=== PATIENT | male | born 1955 | race Caucasian/White ===

== ENCOUNTER 2019-02-28 16:28 | Emergency (ER) | payer BC ==
[~2019-02-28] VITALS: Ht 177.8 cm; Wt 68.0 kg
--- NOTE | 2019-02-28 17:40 | NUR ---
ED Nurse Note: Pt BIBA c/oETOH. Pt states that he has been drinking 1L of vodka "for a few days".Pt States that he wanted to himself when he was at home, but now does not. Pt is in gown and belongings have been placed in locker 3. Pt is AAox4 respirations are and unlabored. Pt is able to abmulate unassisted with steady gait.
[2019-02-28 17:53] LABS: HEMATOCRIT 43.9 % (42.0-52.0); HEMOGLOBIN 14.5 G/DL (14.2-18.0); MEAN CORPUSCULAR VOLUME 103 FL (80-99); PLATELET COUNT 416 K/UL (150-450); RED BLOOD COUNT 4.28 M/UL (4.70-6.10); WHITE BLOOD COUNT 7.3 K/UL (4.8-10.8)
[2019-02-28 18:13] LABS: ANION GAP 14 mmol/L (5-15); BLOOD UREA NITROGEN 9 mg/dL (7-18); CALCIUM 9.3 MG/DL (8.5-10.1); CARBON DIOXIDE 30 MMOL/L (21-32); CHLORIDE 99 MMOL/L (98-107); CREATININE 1.2 MG/DL (0.55-1.30); POTASSIUM 3.5 MMOL/L (3.5-5.1); SODIUM 143 MMOL/L (136-145)
[2019-02-28 18:19] LABS: ALANINE AMINOTRANSFERASE 72 U/L (12-78); ALBUMIN 4.3 G/DL (3.4-5.0); ALBUMIN/GLOBULIN RATIO 1.1 (1.0-2.7); ALKALINE PHOSPHATASE 91 U/L (46-116); ASPARTATE AMINO TRANSFERASE 67 U/L (15-37); BILIRUBIN,TOTAL 0.3 MG/DL (0.2-1.0)
[2019-02-28 18:25] VITALS: BP 135/82
--- NOTE | 2019-02-28 19:05 | NUR ---
ED Nurse Note: received report from Len RN, pt vss, resp even and unlabored on RA, resting at this time, req water, pt provided with water and juice and extra blanket for comfort, pt denies SI/HI/VH/AH at this time, will cont monitor.
[2019-02-28 19:10] VITALS: BP 121/67
--- NOTE | 2019-02-28 20:00 | NUR ---
ED Nurse Note: REPORT GIVEN TO [facility].
--- NOTE | 2019-02-28 20:15 | NUR ---
ED Nurse Note: RECIEVED PT BEING MOVED FROM ANOTHER ROOM, PT IS IN BED AWAKE, ALERT AND ORIENTED X 4, PT HERE FOR POSSIBLE SUICIDAL IDEATIONS WHICH HE IS CURRENTLY DENYING AT THIS TIME, ALSO DENIES HOMICIDAL IDEATIONS OR ANY HALLUCINATIONS, PT IS CALM AND COOPERATIVE, WILL RESUME CARE ORDERD AND COJTINUE TO CLOSELY MONITOR.
--- NOTE | 2019-02-28 21:29 | Emergency Room Report ---
History of Present Illness General Chief Complaint: Behavioral Complaint Source: Patient (Asael Cheung DO) Present Illness HPI Patient presents by paramedics patient reported that he had drank alcohol he had been depressed he reported thoughts of suicidal ideation to them However he did not have any plans Currently denies any suicidal ideations Denies any chest pain or shortness of breath denies any vomiting He reports that he feels well and wants to be back with his cats at home (AdelinesriAsael ) Allergies: Coded Allergies: No Known Allergies (Unverified , 02/28/19) Patient History Past Medical History: see triage record Pertinent Family History: none Reviewed Nursing Documentation: PMH: Agreed; PSxH: Agreed (AdelineAsael fierro ) Nursing Documentation-PMH Past Medical History: No Stated History (AdelinesriAsael ESCOTO) Review of Systems All Other Systems: negative except mentioned in HPI (AdelinesriAsael ESCOTO) Physical Exam Vital Signs Date Time Temp Pulse Resp B/P (MAP) Pulse Ox O2 Delivery O2 Flow Rate FiO2 02/28/19 16:25 98.2 80 16 140/86 96 Room Air Sp02 EP Interpretation: reviewed, normal General Appearance: well appearing, no apparent distress Head: normocephalic, atraumatic Eyes: bilateral eye PERRL, bilateral eye EOMI ENT: hearing grossly normal, normal pharynx, TMs + canals normal, uvula midline Neck: full range of motion, supple, no meningismus, no bony tend Respiratory: lungs clear, normal breath sounds, no rhonchi, no respiratory distress, no retraction, no accessory muscle use Cardiovascular #1: normal peripheral pulses, regular rate, rhythm, no edema, no gallop, no JVD, no murmur Gastrointestinal: normal bowel sounds, non tender, soft, no mass, no organomegaly, non-distended, no guarding, no hernia, no pulsatile mass, no rebound Genitourinary: no CVA tenderness Musculoskeletal: normal inspection Neurologic: oriented x3, responsive, armhole baster hand III-XII nml as tested, motor strength/ tone normal, sensory intact Psychiatric: mood/affect normal, no suicidal/homicidal ideation Skin: normal color, no rash, warm/dry, palpation normal Lymphatic: normal inspection, no adenopathy (AdelinefaithAsael ESCOTO) Medical Decision Making Diagnostic Impression: Primary Impression: Alcohol intoxication Qualified Codes: F10.920 - Alcohol use, unspecified with intoxication, uncomplicated ER Course Given the patient's presentation he was not placed on a 5150 by police department given his alcohol abuse and marijuana use We did obtain further blood work patient does have elevated alcohol level Given his initial complaints and verbalization of suicidal thought patient will have psychiatric input in the morning as well Labs Test 02/28/19 17:36 White Blood Count 7.3 K/UL (4.8-10.8) Red Blood Count 4.28 M/UL (4.70-6.10) Hemoglobin 14.5 G/DL (14.2-18.0) Hematocrit 43.9 % (42.0-52.0) Mean Corpuscular Volume 103 FL (80-99) Mean Corpuscular Hemoglobin 33.9 PG (27.0-31.0) Mean Corpuscular Hemoglobin Concent 33.1 G/DL (32.0-36.0) Red Cell Distribution Width 13.0 % (11.6-14.8) Platelet Count 416 K/UL (150-450) Mean Platelet Volume 6.4 FL (6.5-10.1) Neutrophils (%) (Auto) % (45.0-75.0) Lymphocytes (%) (Auto) % (20.0-45.0) Monocytes (%) (Auto) % (1.0-10.0) Eosinophils (%) (Auto) % (0.0-3.0) Basophils (%) (Auto) % (0.0-2.0) Differential Total Cells Counted 100 Neutrophils % (Manual) 34 % (45-75) Lymphocytes % (Manual) 58 % (20-45) Monocytes % (Manual) 7 % (1-10) Eosinophils % (Manual) 0 % (0-3) Basophils % (Manual) 0 % (0-2) Band Neutrophils 1 % (0-8) Platelet Estimate Adequate Platelet Morphology Normal Red Blood Cell Morphology Normal Sodium Level 143 MMOL/L (136-145) Potassium Level 3.5 MMOL/L (3.5-5.1) Chloride Level 99 MMOL/L (98-107) Carbon Dioxide Level 30 MMOL/L (21-32) Anion Gap 14 mmol/L (5-15) Blood Urea Nitrogen 9 mg/dL (7-18) Creatinine 1.2 MG/DL (0.55-1.30) Estimat Glomerular Filtration Rate > 60 mL/min (>60) Glucose Level 105 MG/DL (74-106) Calcium Level 9.3 MG/DL (8.5-10.1) Total Bilirubin 0.3 MG/DL (0.2-1.0) Aspartate Amino Transf (AST/SGOT) 67 U/L (15-37) Alanine Aminotransferase (ALT/SGPT) 72 U/L (12-78) Alkaline Phosphatase 91 U/L (46-116) Total Protein 8.3 G/DL (6.4-8.2) Albumin 4.3 G/DL (3.4-5.0) Globulin 4.0 g/dL Albumin/Globulin Ratio 1.1 (1.0-2.7) Salicylates Level 4.6 ug/mL (2.8-20) Urine Opiates Screen Negative (NEGATIVE) Acetaminophen Level < 2 MCG/ML (10-30) Urine Barbiturates Screen Negative (NEGATIVE) Phencyclidine (PCP) Screen Negative (NEGATIVE) Urine Amphetamines Screen Negative (NEGATIVE) Urine Benzodiazepines Screen Positive (NEGATIVE) Urine Cocaine Screen Negative (NEGATIVE) Urine Marijuana (THC) Screen Positive (NEGATIVE) Serum Alcohol 343 mg/dL (Asael Cheung DO) ER Course Patient signout to me. He presents with chief complaint of alcohol intoxication and suicidal thoughts. He slept for several hours. Now is awake. He said a little tremulous. No longer suicidal and ever was homicidal. No hallucination or delusion. He said that he will go to AA meeting after today. Denies any other complaint. Is cooperative and calm. Pleasant. I see no criteria for 5150 at this moment in time. This patient is a chronic risk of self injury due to poor impulse control, limited coping skills, and judgment intermittently impaired by intoxication. I believe that the available clinical evidence to suggest that these characteristics derived primarily from personality disorder and are likely very stable over time. Hospitalization would likely attenuate risk of self-harm only during half-way period, without lasting risk reduction. Serious self-harm , while possible, would likely be inadvertent, and because of impulsivity, and foreseeable. For these reasons, I do not believe hospitalization would provide meaningful reduction in risk of self-harm. (Satya Streeter MD) Last Vital Signs Date Time Temp Pulse Resp B/P (MAP) Pulse Ox O2 Delivery O2 Flow Rate FiO2 02/28/19 19:10 98.0 76 16 121/67 100 Room Air Status: improved (Asael Cheung DO) Status: improved (Satya Streeter MD) Disposition: HOME, SELF-CARE Condition: Stable Scripts Chlordiazepoxide (Chlordiazepoxide HCl) 25 Mg Capsule 25 MG ORAL THREE TIMES A DAY, #15 CAP 0 Refills Prov: Satya Streeter MD 03/01/19 Referrals: NOT CHOSEN IPA/,REFERRING (PCP) Additional Instructions: Follow-up with rehabilitation and AA meeting [facility]. Follow-up with your doctor within a week. Return if symptom worsen. Asael Cheung DO Feb 28, 2019 21:29 Satya Streeter MD Mar 01, 2019 03:21
[2019-03-01] MEDS ORDERED: chlordiazePOXIDE 25mg Cap ORAL ONE (03:15)
[2019-03-01] MEDS ORDERED: LORazepam Inj 2mg/ml 1ml IV ONE ×2 (03:15→04:45)
[2019-03-01] MEDS ORDERED: LIBRIUM25 MG ORAL (03:21)
[2019-03-01 04:00] VITALS: BP 118/72
--- NOTE | 2019-03-01 04:00 | NUR ---
ED Nurse Note: patient sleeping comfortably in bed. nad. offered sandwich and water; patient refused.
[2019-03-01] MEDS ORDERED: LORazepam Inj 2mg/ml 1ml ONE (04:28)
--- NOTE | 2019-03-01 04:38 | NUR ---
ED Nurse Note: Received telephone order from Dr. Streeter for Ativan 2mg IV.
[2019-03-01 06:01] VITALS: BP_SYST 125; BP_DIAS 71; BP_DIAS 73
--- NOTE | 2019-03-01 06:01 | NUR ---
ER DISCHARGE NOTE: Patient is cleared to be discharged per ERMD, pt is aox4, on room air, with stable vital signs. pt was given dc and prescription instructions, pt was able to verbalize understanding, pt id band and iv site removed without complications. pt is able to ambulate with steady gait. pt took all belongings. Provided patient with taxi voucher. pt in waiting room for taxi
== END 2019-03-01 06:01 | disposition home or self-care (01) ==
LOC: EDBD 16:28 → EMR 17:10
DX: F10.129 Alcohol abuse with intoxication, unspecified (principal); F12.90 Cannabis use, unspecified, uncomplicated; R45.851 Suicidal ideations
CPT/HCPCS: 36415; 80053; 80307; 85007; 85025; 96374; 96376; 99284; G0480; 80329